=== PATIENT | female | born 1980 | race African-American/Black ===

== ENCOUNTER 2017-09-16 20:30 | Emergency (ER) | payer OTHER ==
[~2017-09-16] VITALS: Ht 162.6 cm; Wt 102.1 kg
[~2017-09-16 20:30] MED LIST: ADVIL200 M1 PO; AMBIEN; BACTRIM DS TAB1 EACH PO; CELEXA 20 MG TA20 M1 PO; CIPROFLOXACIN500 M1 PO; DARVOCET-N 1001 EACH PO; DESYREL; ERYTHROMYCIN E3.5 G3 OPHTHALMIC; HYDROXYZINE HCL25 M1 PO; IBUPROFEN 600600 M1; IBUPROFEN 600600 M1 PO; KEFLEX500 MG PO; LAMICTAL 25 MG25 M1 PO; LAMICTAL XR100 MG PO; LISINOPRIL10 MG PO; LISINOPRIL5 MG PO; MACROBID 100 M100 M1 PO; MOBIC15 MG PO; NO RX MEDS; NOHOMEMEDICATIONS; NORCO 5-325 TA1 EACH PO; PENICILLIN V P500 MG PO; PRILOSEC 20 MG20 MG PO; PRILOSEC40 MG PO; RISPERDAL4 MG PO; RISPERIDONE 1 MG1 MG PO; VALIUM2 MG PO; VENTOLIN HFA 1818 GM INH; ZPAK PO; [UNRECOGNIZED DRUG - REMARK]; depression
[2017-09-16 21:19] LABS: ABSOLUTE NEUTROPHILS 3.8 thou/uL (1.4-8.2); BASOPHILS 0.4 % (0.0-2.0); EOSINOPHILS 1.5 % (0.0-3.0); HEMATOCRIT 42.6 % (37.0-47.0); LYMPHOCYTES 30.2 % (24.0-44.0); MCH 27.3 pg (26.0-34.0); MCV 82.8 fL (80.0-100.0); MONOCYTES 6.3 % (1.0-8.0); PLATELET COUNT 166 thou/uL (150-400); POLYS 61.6 % (36.0-66.0); RBC 5.14 mil/uL (4.20-5.00); RDW 16.4 % (10.5-14.5); WBC 6.1 thou/uL (4.0-11.0)
[2017-09-16 21:26] LABS: CALCIUM 8.1 mg/dL (8.5-10.1)
[2017-09-16 21:31] LABS: POTASSIUM 2.9 mmol/L (3.5-5.1)
[2017-09-16 21:32] LABS: ALBUMIN 3.2 g/dL (3.4-5.0); DIRECT BILIRUBIN 0.2 mg/dL (<0.1-0.3); TOTAL BILIRUBIN 0.5 mg/dL (<0.1-1.0); TOTAL PROTEIN 6.7 g/dL (6.4-8.2)
[2017-09-16] MEDS ORDERED: HYDROCODONE-AP1 EAC6 PO (23:41)
[2017-09-16] MEDS ORDERED: PRILOSEC OTC20 MG PO (23:41)
[2017-09-16] MEDS ORDERED: CARAFATE 1 GM TA1 G1 PO (23:41)
[2017-09-16] MEDS ORDERED: ZOFRAN ODT4 MG PO (23:41)
[2017-09-17 00:09] VITALS: BP 143/89
== END 2017-09-17 00:10 | disposition home or self-care (01) ==
LOC: ER 20:30
PROVIDERS: Emergency Medicine
DX: R10.10 Upper abdominal pain, unspecified (principal); R10.13 Epigastric pain; R10.30 Lower abdominal pain, unspecified; R10.33 Periumbilical pain; F17.210 Nicotine dependence, cigarettes, uncomplicated; I10 Essential (primary) hypertension; F31.9 Bipolar disorder, unspecified

== ENCOUNTER 2018-03-13 12:15 | Emergency (ER) | payer OTHER ==
[~2018-03-13] VITALS: Ht 162.6 cm; Wt 89.4 kg
[~2018-03-13 12:15] MED LIST changes: +CARAFATE 1 GM TA1 G1 PO; +HYDROCODONE-AP1 EAC6 PO; +PRILOSEC OTC20 MG PO; +ZOFRAN ODT4 MG PO
[2018-03-13] MEDS ORDERED: LISINOPRIL40 MG PO (12:26)
[2018-03-13] MEDS ORDERED: CORICIDIN COLD1 EACH PO (13:34)
[2018-03-13] MEDS ORDERED: MOBIC7.5 MG PO (13:34)
[2018-03-13] MEDS ORDERED: AMOXICILLIN 50500 MG PO (13:34)
[2018-03-13 13:47] VITALS: BP 176/111
== END 2018-03-13 13:50 | disposition home or self-care (01) ==
LOC: ER 12:15
DX: J32.9 Chronic sinusitis, unspecified (principal); J06.9 Acute upper respiratory infection, unspecified; F17.210 Nicotine dependence, cigarettes, uncomplicated; I10 Essential (primary) hypertension; F31.9 Bipolar disorder, unspecified

== ENCOUNTER 2018-10-28 15:49 | Inpatient (IN) | payer OTHER ==
[~2018-10-28] VITALS: Ht 162.6 cm; Wt 79.4 kg
[~2018-10-28 15:49] MED LIST changes: +AMOXICILLIN 50500 MG PO; +CORICIDIN COLD1 EACH PO; +KEFLEX500 M1 PO; +KLOR-CON M2020 MEQ PO; +LISINOPRIL40 MG PO; +MOBIC7.5 MG PO; +ONDANSETRON HCL4 M2 PO
[2018-10-28 15:54] VITALS: BP 171/107
[2018-10-28] MEDS ORDERED: BACTRIM DS TAB1 EACH PO (15:58)
[2018-10-28 16:46] LABS: HEMATOCRIT 39.6 % (37.0-47.0); HEMOGLOBIN 13.2 gm/dL (12.0-15.0); MCH 31.4 pg (26.0-34.0); MCHC 33.4 g/dL (28.0-37.0); RBC 4.21 mil/uL (4.20-5.00); RDW 15.1 % (10.5-14.5); WBC 6.1 thou/uL (4.0-11.0)
[2018-10-28 17:10] LABS: CALCIUM 9.3 mg/dL (8.5-10.1); CREATININE 0.7 mg/dL (0.6-1.0); POTASSIUM 3.3 mmol/L (3.5-5.1)
[2018-10-28 17:44] VITALS: BP 168/89
[2018-10-28 17:53] VITALS: BP 168/89; BP 170/91
[2018-10-28 17:56] LABS: AMP/METHAMP Negative (Negative); BARBITURATES Negative (Negative); BENZODIAZEPINES Negative (Negative); COCAINE Negative (Negative); METHADONE Negative (Negative); OPIATES Negative (Negative); PCP Negative (Negative)
[2018-10-28 18:00] VITALS: BP 167/107
--- NOTE | 2018-10-28 19:29 | NUR ---
Revieved report from ED nurse, Flower at 1751. The patient arrived to the unit at 1800 with family. Patient complained of 7/10 pain in her right elbow, which was propped up on a pillow. Vital signs stable, patient's blood pressue was elevated. Will continue to monitor.
[2018-10-28 19:36] VITALS: BP 169/99
[2018-10-28 23:53] VITALS: BP 147/83
--- NOTE | 2018-10-29 01:54 | NUR ---
ASSUMED CARE OF PT @1900, PT ASSESSED AT START OF SHIFT PT A&OX4. WOUND ABCESS NOTED ON RT ARM C/O OF PAIN IN RIGHT ARM. PAIN MEDS GIVEN SEE EMAR. IV IN LFT FOREARM INTACT AND ABX INFUSING. PT STATED SHES NOT DIABETIC AND REFUSED INSULIN. UP AD KERRI AND FAMILY AT BEDSIDE FOR THE NIGHT. WILL CONTINUE TO MONITOR TILL EOS.
[2018-10-29 04:09] VITALS: BP 122/81
[2018-10-29 07:53] VITALS: BP 132/73
--- NOTE | 2018-10-29 15:18 | NUR ---
PT ADMITTED RELATED TO RIGHT ARM ABCESS. CM REVIEWED CHART AND SPOKE WITH CARE TEAM. CM MET WITH PT AT BEDSIDE THIS DAY. PT IS A&O X4. CM ROLE INTRODUCED. PT INDICATED SHE LIVES IN A HOSUE WITH HER GRANDMOTHER WITH 2 STEPS TO ENTER AND NO STEPS SHE USES INSIDE. 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 PT INDICATED HER PCP IS DR. HASMUKH GIMENEZ. SHE INIDCATED SHE PLANS TO RETURN HOME ONCE MEDICALLY STABLE. CM TO FOLLOW INDICATED WITH DC PLANNING.
[2018-10-29 17:01] VITALS: BP 136/83
--- NOTE | 2018-10-29 19:47 | NUR ---
PT BACK FROM I &D WITH DR MISTRY. OF RIGHT ELBOW. CALLED DR MOFFETT FOR BENADRYL ORDER PT C/O ITICHING. ALSO REPORTED THAT IV NURSE REPLACED IV AND WROTE ON BOTTOM OF SBAR CLOT MATERIAL SEEN ON ULTRASOUND BY IV TEAM IN LT LOWER ARM. DR. MOFFETT GAVE BENADRLY ORDER AND NO NEW ORDERS FOR CLOT MATERIAL ON L LOWER ARM. WALLACE STARKS.
[2018-10-29 19:49] VITALS: BP 136/80
[2018-10-29 20:30] VITALS: BP 136/80
[2018-10-30 03:12] VITALS: BP 151/77
--- NOTE | 2018-10-30 04:59 | NUR ---
ASSUMED CARE OF PT @1900 PT ASSESSED AT START OF SHIFT A&OX4. C/O OF PAIN IN ELBOW PAIN MEDS GIVEN. SEROSANGUINOUS DRAINAGE NOTED ON DRESSING DID DRESSING CHANGE AND PACKED WOUND. ABX INFUSED. PT WOKE UP @0300 WITH C/O CHEST PAIN VSS CALLED ONCALL PRINCIPAL STRATEGIST AND ORDERS GIVEN FOR A STAT EKG AND TROPONIN. EKG SHOWS NORMAL SINUS RTHYMN. PT BELCHING. GI COCKTAIL, PROTONIX AND TUMS GIVEN SEE EMAR. PT STATED CHEST PAIN RELIEFED. WILL CONTINUE WITH POC TILL EOS.
[2018-10-30 08:26] VITALS: BP 182/106
[2018-10-30] MEDS ORDERED: CLEOCIN HCL150 MG PO (08:29)
[2018-10-30] MEDS ORDERED: IBUPROFEN 600600 M1 PO (08:30)
[2018-10-30 13:59] VITALS: BP 182/106
--- NOTE | 2018-10-30 14:02 | NUR ---
CARE TEAM INDICATED THAT PT IS MEDICALLY STABLE TO DC HOME THIS DAY. PT EXPRESSED CONCERN ABOUT WOUND CARE AND MEDICATIONS UPON DC. 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 THERE WAS A FAMILY MEMBER LIKELY HER SISTER IN THE ROOM AND SHE INDICATED THAT SHE WAS WILL TO ASSIST. CM INDICATED THAT PT WOULD BE PROVIDED PACKET OF SUPPLIES TO USE. CM TO VOUCHER PT'S MEDS AT THE OP PHARMACY FOR THE AMOUNT OF $15.97. JOSEPH IS TO COME AND SOW THEM HOW TO PACK AND DRESS. CM PROVIDED [facility] PACK[facility] AND THE NUMBER FOR [employer] SO SHE CAN FOLLOW UP WITH THEM REGARDING MEDICAID [place]. NO OTHER CM INTERVENTION INIDCATED. CASE CLOSED.
--- NOTE | 2018-10-30 20:18 | NUR ---
ASSUMED CARE OF PATIENT AT 0715, PATIENT ALERT AND OTIENTED X 4. PATIENT UP AD KERRI. PATIENT HAS RIGHT ELBOW WOUND DUE TO SPIDER BITE. DRESSING IN PLACE C/D/I. DR MISTRY HERE THIS AM, AREA LOOKS FINE. C/O PAIN WITH RIGHT ELBOW, RECEIVED PAIN MED X 1. PATIENT HAD LEFT HAND IV IN PLACE, C/O PAIN WHEN IV ANTIBIOTIC RUNNING, MEDICATION STOPPED. THIS RN NOTIFIED DR MOFFETT, STATES REMOVE IV AND PATIENT WILL DISCHARGE WITH PO ANTIBIOTIC. PATIENT HAD MULTIPLE COMPLIANTS, SHE CALLED PATIENT ADVOCATE, WHO CAME TO SEE THE PATIENT, WOUND CARE/JOSEPH CAME TO SEE THE PATIENT,A DN DID WOUND CARE. PATIENT REFUSED TO LEAVE WITHOUT TALKING TO THE DOCTOR AGAIN, AND REQUESTING HOME HEALTH AND HELP GETTING HER SCRIPTS FILLED DUE TO NO INSURANCE. DANIEL/MARIANNA ASSITED PATIENT WITH MEDS AND PATIENT WAS TAUGHT BY JOSEPH/T[employer] ONE READING TEACHER AND HE GAVE HER SUPPLIES TO TAKE CARE OF WOUND UNTIL SHE GOES BACK TO SEE DR MISTRY. LEFT HAND IV REMOVED PRIOR TO DISCHARGE. PATIENT LEFT WITHOUT DISCHARGE INSTRUCTIONS, AND DI NOT SIGN DISCHARGE PAPERS. NURSE PROTEIN SPECIALIST/MIRYAM INFORMED.
--- NOTE | 2018-10-31 08:27 | EKG ---
[place] [address] [address] [facility] [place] [address] ELECTROCARDIOGRAM REPORT Name: JOHN SANCHEZ Room #: [facility] M.R.#: [id number] Admission: 10/28/18 Attend Phys: Hema Villegas Discharge: 10/30/18 Date of : 80 Report #: [id number] THIS REPORT FOR: //name// [facility] Test Date: 2018-10-30 Test Time: 03:36:13 Pat Name: JOHN SANCHEZ Department: Room: [facility] Gender: F Dietitian Consultant: JUAN MANUEL KATZ : 1980 Requested By: Suzi Golden Order Number: [id number] MD: Yovany Cruz Measurements Intervals [place] Rate: 75 P: 51 LA: 149 QRS: 22 QRSD: 93 T: 15 QT: 385 QTc: 430 Interpretive Statements Sinus rhythm Probable left atrial enlargement Left ventricular hypertrophy Compared to ECG 08/27/2015 12:29:23 Left ventricular hypertrophy now present ST (T wave) deviation no longer present Electronically Signed On 10-31-2018 8:27:42 CDT by Yovany Cruz [email or web address] <ELECTRONICALLY SIGNED> By: Yovany Cruz MD 10/31/18 0827 [id number] Yovany Cruz MD /EPI
[2018-10-31] MEDS ORDERED: BACTRIM DS TAB1 EACH PO (16:23)
[2018-10-31] MEDS ORDERED: NORCO 10-325 T1 EACH PO (16:26)
== END 2018-10-30 15:33 | disposition home or self-care (01) | DRG 581 ==
LOC: ER 15:49 → EROBS 17:31 → 4E 18:00
PROVIDERS: Nurse Practitioner Family; ADMIT Hospitalist
PROC: 0J9G0ZZ Drainage of Right Lower Arm Subcutaneous Tissue and Fascia, Open Approach (ICD-10-PCS; principal; 2018-10-29)
DX: L03.113 Cellulitis of right upper limb (principal); L02.413 Cutaneous abscess of right upper limb; I10 Essential (primary) hypertension; F31.9 Bipolar disorder, unspecified; F41.9 Anxiety disorder, unspecified; T63.391A Toxic effect of venom of other spider, accidental (unintentional), initial encounter; Z53.29 Procedure and treatment not carried out because of patient's decision for other reasons; F17.210 Nicotine dependence, cigarettes, uncomplicated; Z79.899 Other long term (current) drug therapy; Y92.89 Other specified places as the place of occurrence of the external cause
CPT/HCPCS: 10084; 10183; 50010; 50101; 50386; 57091; 62110; 62900; 70005

== ENCOUNTER 2018-10-31 12:55 | Emergency (ER) | payer OTHER ==
[~2018-10-31] VITALS: Ht 162.6 cm; Wt 79.4 kg
[~2018-10-31 12:55] MED LIST changes: +CLEOCIN HCL150 MG PO
[2018-10-31 14:13] LABS: CALCIUM 9.4 mg/dL (8.5-10.1); CREATININE 0.8 mg/dL (0.6-1.0); POTASSIUM 4.6 mmol/L (3.5-5.1)
[2018-10-31 14:18] LABS: ALBUMIN 3.7 g/dL (3.4-5.0)
[2018-10-31 14:29] LABS: TOTAL BILIRUBIN 0.3 mg/dL (<0.1-1.0); TOTAL PROTEIN 7.8 g/dL (6.4-8.2)
[2018-10-31 15:00] LABS: ABSOLUTE NEUTROPHILS 2.7 thou/uL (1.4-8.2); BASOPHILS 0.6 % (0.0-2.0); EOSINOPHILS 0.7 % (0.0-3.0); HEMATOCRIT 37.7 % (37.0-47.0); HEMOGLOBIN 12.6 gm/dL (12.0-15.0); LYMPHOCYTES 33.4 % (24.0-44.0); MCH 30.9 pg (26.0-34.0); MCHC 33.3 g/dL (28.0-37.0); MCV 92.7 fL (80.0-100.0); PLATELET COUNT 206 thou/uL (150-400); POLYS 58.3 % (36.0-66.0); RBC 4.07 mil/uL (4.20-5.00); RDW 15.3 % (10.5-14.5); WBC 4.6 thou/uL (4.0-11.0)
[2018-10-31] MEDS ORDERED: BACTRIM DS TAB1 EACH PO (16:23)
[2018-10-31] MEDS ORDERED: NORCO 10-325 T1 EACH PO (16:26)
[2018-10-31 16:55] VITALS: BP 186/96
== END 2018-10-31 16:59 | disposition home or self-care (01) ==
LOC: ER 12:55
PROVIDERS: Physician Assistant
DX: Z48.00 Encounter for change or removal of nonsurgical wound dressing (principal); L02.413 Cutaneous abscess of right upper limb; I10 Essential (primary) hypertension; F31.9 Bipolar disorder, unspecified; F17.210 Nicotine dependence, cigarettes, uncomplicated

== ENCOUNTER 2019-05-15 18:49 | Emergency (ER) | payer OTHER ==
[~2019-05-15] VITALS: Ht 162.6 cm; Wt 77.1 kg
[~2019-05-15 18:49] MED LIST changes: +NORCO 10-325 T1 EACH PO
[2019-05-15] MEDS ORDERED: IBU600 MG PO (20:18)
[2019-05-15] MEDS ORDERED: FLEXERIL PO (20:18)
[2019-05-15 20:36] VITALS: BP 148/88
== END 2019-05-15 20:36 | disposition home or self-care (01) ==
LOC: ER 18:49
DX: S39.012A Strain of muscle, fascia and tendon of lower back, initial encounter (principal); I10 Essential (primary) hypertension; F31.9 Bipolar disorder, unspecified; F17.210 Nicotine dependence, cigarettes, uncomplicated; V89.2XXA Person injured in unspecified motor-vehicle accident, traffic, initial encounter; Y93.89 Activity, other specified; Y92.89 Other specified places as the place of occurrence of the external cause; Y99.8 Other external cause status

== ENCOUNTER 2019-08-20 00:40 | Emergency (ER) | payer OTHER ==
[~2019-08-20] VITALS: Ht 162.6 cm; Wt 74.8 kg
[~2019-08-20 00:40] MED LIST changes: +FLEXERIL PO; +IBU600 MG PO
[2019-08-20 01:31] LABS: HEMATOCRIT 37.5 % (37.0-47.0); HEMOGLOBIN 12.5 gm/dL (12.0-15.0); MCH 31.4 pg (26.0-34.0); MCHC 33.2 g/dL (28.0-37.0); MCV 94.4 fL (80.0-100.0); PLATELET COUNT 165 thou/uL (150-400); RBC 3.97 mil/uL (4.20-5.00); RDW 15.5 % (10.5-14.5); WBC 5.5 thou/uL (4.0-11.0)
[2019-08-20 01:39] LABS: CALCIUM 8.1 mg/dL (8.5-10.1); CREATININE 0.8 mg/dL (0.6-1.0); POTASSIUM 3.3 mmol/L (3.5-5.1)
[2019-08-20 01:44] LABS: TOTAL BILIRUBIN 0.6 mg/dL (0.2-1.0); TOTAL PROTEIN 6.3 g/dL (6.4-8.2)
[2019-08-20 02:45] LABS: ABSOLUTE NEUTROPHILS 3.4 thou/uL (1.4-8.2); PLATELET ESTIMATE NORMAL
[2019-08-20] MEDS ORDERED: ZOFRAN ODT4 MG PO (03:16)
[2019-08-20] MEDS ORDERED: NORCO 10-325 T1 EACH PO (03:16)
[2019-08-20 03:17] VITALS: BP 150/96
== END 2019-08-20 03:24 | disposition home or self-care (01) ==
LOC: ER 00:40
PROVIDERS: Emergency Medicine
DX: K80.50 Calculus of bile duct without cholangitis or cholecystitis without obstruction (principal); I10 Essential (primary) hypertension; F31.9 Bipolar disorder, unspecified; F17.210 Nicotine dependence, cigarettes, uncomplicated; Z98.84 Bariatric surgery status; Z79.899 Other long term (current) drug therapy

== ENCOUNTER 2020-06-17 08:51 | Emergency (ER) | payer OTHER ==
[~2020-06-17] VITALS: Ht 162.6 cm; Wt 77.1 kg
[2020-06-17 09:19] LABS: HEMATOCRIT 37.4 % (37.0-47.0); HEMOGLOBIN 12.4 gm/dL (12.0-15.0); MCH 29.7 pg (26.0-34.0); MCHC 33.2 g/dL (28.0-37.0); MCV 89.3 fL (80.0-100.0); RBC 4.18 mil/uL (4.20-5.00); RDW 17.1 % (10.5-14.5); WBC 3.9 thou/uL (4.0-11.0)
[2020-06-17 09:44] LABS: CALCIUM 9.1 mg/dL (8.5-10.1); CREATININE 0.7 mg/dL (0.6-1.0); POTASSIUM 3.7 mmol/L (3.5-5.1)
[2020-06-17 09:50] LABS: URINE BILIRUBIN NEGATIVE (Negative); URINE BLOOD NEGATIVE (Negative); URINE CLARITY CLEAR; URINE COLOR YELLOW; URINE GLUCOSE-RANDOM* NEGATIVE (Negative); URINE KETONES NEGATIVE (Negative); URINE LEUKOCYTES-REFLEX NEGATIVE (Negative); URINE NITRITE-REFLEX NEGATIVE (Negative); URINE PROTEIN (DIPSTICK) NEGATIVE (Negative); URINE SPECIFIC GRAVITY 1.025 (1.005-1.035); URINE UROBILINOGEN 0.2 E.U./dl (0.2-1.0)
[2020-06-17 09:50] LABS: ALBUMIN 3.8 g/dL (3.4-5.0); TOTAL BILIRUBIN 0.7 mg/dL (0.2-1.0); TOTAL PROTEIN 8.3 g/dL (6.4-8.2)
[2020-06-17] MEDS ORDERED: OMEPRAZOLE 20 M20 M1 PO ×2 (10:34→10:40)
[2020-06-17] MEDS ORDERED: LISINOPRIL10 MG PO ×2 (10:34→10:39)
[2020-06-17] MEDS ORDERED: ZOFRAN ODT4 MG PO (10:35)
[2020-06-17] MEDS ORDERED: CHLORDIAZEPOXID25 M1 PO (11:42)
[2020-06-17 12:04] VITALS: BP 164/98
== END 2020-06-17 12:05 | disposition home or self-care (01) ==
LOC: ER 08:51
PROVIDERS: Student in an Organized Health Care Education/Training Program
DX: D69.6 Thrombocytopenia, unspecified (principal); R11.10 Vomiting, unspecified; R74.01 Elevation of levels of liver transaminase levels; R10.84 Generalized abdominal pain; I10 Essential (primary) hypertension; F17.210 Nicotine dependence, cigarettes, uncomplicated; Z79.899 Other long term (current) drug therapy

== ENCOUNTER 2020-07-07 10:23 | Emergency (ER) | payer OTHER ==
[~2020-07-07] VITALS: Ht 162.6 cm; Wt 79.4 kg
[~2020-07-07 10:23] MED LIST changes: +CHLORDIAZEPOXID25 M1 PO; +OMEPRAZOLE 20 M20 M1 PO
[2020-07-07 11:12] LABS: ABSOLUTE NEUTROPHILS 4.2 thou/uL (1.4-8.2); BASOPHILS 0.5 % (0.0-2.0); EOSINOPHILS 1.3 % (0.0-3.0); HEMATOCRIT 38.7 % (37.0-47.0); HEMOGLOBIN 12.8 gm/dL (12.0-15.0); LYMPHOCYTES 19.3 % (24.0-44.0); MCH 29.3 pg (26.0-34.0); MCHC 32.9 g/dL (28.0-37.0); MCV 88.9 fL (80.0-100.0); MONOCYTES 5.2 % (1.0-8.0); PLATELET COUNT 216 thou/uL (150-400); POLYS 73.7 % (36.0-66.0); RBC 4.36 mil/uL (4.20-5.00); RDW 16.5 % (10.5-14.5); WBC 5.8 thou/uL (4.0-11.0)
[2020-07-07 11:18] LABS: ANION GAP 12 mmol/L (7-16); BUN 9 mg/dL (7-18); CALCIUM 8.9 mg/dL (8.5-10.1); CHLORIDE 104 mmol/L (98-107); CO2 24 mmol/L (21-32); CREATININE 0.8 mg/dL (0.6-1.0); GLUCOSE 102 mg/dL (74-106); POTASSIUM 3.6 mmol/L (3.5-5.1); SODIUM 140 mmol/L (136-145)
[2020-07-07 11:32] LABS: ALBUMIN 3.8 g/dL (3.4-5.0); LIPASE 103 U/L (73-393); SGOT 68 U/L (15-37); SGPT 52 U/L (30-65); TOTAL BILIRUBIN 0.6 mg/dL (0.2-1.0); TOTAL PROTEIN 8.2 g/dL (6.4-8.2); TROPONIN-I <0.06 ng/mL (<0.06)
[2020-07-07] MEDS ORDERED: IBUPROFEN 600600 M1 PO (13:22)
[2020-07-07 13:35] VITALS: BP 154/69
--- NOTE | 2020-07-07 15:18 | EKG ---
[address] [place] [address] ELECTROCARDIOGRAM REPORT Name: JOHN SANCHEZ Room #: [facility]#: [id number] Admission: 07/07/20 Attend Phys: Discharge: 07/07/20 Date of : 80 Report #: [id number] [facility] ED Test Date: 2020-07-07 Test Time: 10:36:53 Pat Name: JOHN SANCHEZ Department: Room: Gender: F Patent Agent: MPARK : 1980 Requested By: Blake Fischer Order Number: [id number] MD: Kannan Davidson Measurements Intervals [place] Rate: 88 P: 53 CT: 131 QRS: 14 QRSD: 98 T: 11 QT: 367 QTc: 444 Interpretive Statements Sinus rhythm Probable left ventricular hypertrophy Compared to ECG 10/30/2018 03:36:13 No significant changes Electronically Signed On 07-07-2020 15:17:59 CDT by Kannan Davidson [email or web address] <ELECTRONICALLY SIGNED> By: Kannan Davidson MD, [facility] 07/07/20 1517 1036 1036 Kannan Davidson MD, FACC /EPI
== END 2020-07-07 13:35 | disposition home or self-care (01) ==
LOC: ER 10:23
PROVIDERS: Emergency Medicine
DX: R07.9 Chest pain, unspecified (principal); R00.2 Palpitations; I10 Essential (primary) hypertension; F17.210 Nicotine dependence, cigarettes, uncomplicated; Z79.899 Other long term (current) drug therapy

== ENCOUNTER 2021-04-18 18:24 | Emergency (ER) | payer OTHER ==
[~2021-04-18] VITALS: Ht 160 cm; Wt 79.4 kg
[2021-04-18 22:03] VITALS: BP 178/80
== END 2021-04-18 22:03 | disposition home or self-care (01) ==
LOC: ER 18:24
DX: S82.831A Other fracture of upper and lower end of right fibula, initial encounter for closed fracture (principal); M25.561 Pain in right knee; F17.210 Nicotine dependence, cigarettes, uncomplicated; I10 Essential (primary) hypertension; V49.49XA Driver injured in collision with other motor vehicles in traffic accident, initial encounter; Y93.I9 Activity, other involving external motion; Y92.411 Interstate highway as the place of occurrence of the external cause; Y99.8 Other external cause status